=== PATIENT | male | born 1945 | race Caucasian/White ===

== ENCOUNTER 2016-02-27 13:35 | Emergency (ER) | payer OTHER | END 2016-02-27 18:53 | disposition home or self-care (01) | LOC: ER 13:35 | DX: R42 Dizziness and giddiness (principal); E11.9 Type 2 diabetes mellitus without complications; I10 Essential (primary) hypertension; E78.5 Hyperlipidemia, unspecified; Z79.4 Long term (current) use of insulin; Z87.891 Personal history of nicotine dependence | CPT/HCPCS: 36415; 71010; 80053; 81003; 82947; 83735; 85025; 85610; 85730; 93005 ==